=== PATIENT | female | born 1950 | race African-American/Black ===

== ENCOUNTER 2017-11-01 17:43 | Emergency (ER) | payer OTHER ==
[~2017-11-01] VITALS: Ht 157.5 cm; Wt 96.3 kg
[~2017-11-01 17:43] MED LIST: ALBU0.086 NEB; ALBU8I INH; CALC550C PO; DUONI NEB; FEXO180 PO; FLON0.053; MAXZ25 PO; MONT10TA2 PO; PRED20 PO; ST JTAB PO; ZITH250T PO
[2017-11-01 17:50] VITALS: BP 154/75; PULSE 87; RESP 16; TEMP 98.9; O2SAT 99
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
[2017-11-01] MEDS ORDERED: ROBA750T PO (18:07)
[2017-11-01] MEDS ORDERED: IBUP-232 PO (18:07)
[2017-11-01] MEDS ORDERED: MONT10TA4 PO (18:12)
[2017-11-01] MEDS ORDERED: ASPI-516 CHEW (18:12)
[2017-11-01] MEDS ORDERED: VENTAER INH (18:12)
[2017-11-01] MEDS ORDERED: AMLO5TAB2 PO (18:12)
[2017-11-01] MEDS ORDERED: ORPHENADRINE INJ 60 MG/2 ML AMP IM ONE (18:15)
[2017-11-01] MEDS ORDERED: KETOROLAC TROMETHAMINE 60 MG/2 ML (IM) VIAL IM ONE (18:15)
== END 2017-11-01 18:34 | disposition home or self-care (01) ==
LOC: PHEFT 17:43
DX: S29.012A Strain of muscle and tendon of back wall of thorax, initial encounter (principal); S46.912A Strain of unspecified muscle, fascia and tendon at shoulder and upper arm level, left arm, initial encounter; S46.911A Strain of unspecified muscle, fascia and tendon at shoulder and upper arm level, right arm, initial encounter; S39.012A Strain of muscle, fascia and tendon of lower back, initial encounter; I10 Essential (primary) hypertension; K21.9 Gastro-esophageal reflux disease without esophagitis; J45.909 Unspecified asthma, uncomplicated; G47.30 Sleep apnea, unspecified; V43.52XA Car driver injured in collision with other type car in traffic accident, initial encounter
CPT/HCPCS: 96372; 99283; J1885; J2360